=== PATIENT | male | born 1955 | race Caucasian/White ===

== ENCOUNTER → 2023-10-10 14:56 | Outpatient (REF) | payer OTHER, SELFPAY | LOC: DHVS 14:56 | PROVIDERS: ATTENDING PHYSICIAN Surgery Vascular Surgery; FAMILY PHYSICIAN Family Medicine | DX: I73.9 Peripheral vascular disease, unspecified (principal) | CPT/HCPCS: 93922; 93925 ==

== ENCOUNTER → 2023-12-11 13:28 | Outpatient (REF) | payer OTHER, SELFPAY | LOC: RAD 13:28 | PROVIDERS: ATTENDING PHYSICIAN Surgery Vascular Surgery; FAMILY PHYSICIAN Family Medicine | DX: I73.9 Peripheral vascular disease, unspecified (principal) | CPT/HCPCS: 93978 ==

== ENCOUNTER → 2024-07-15 14:18 | Outpatient (REF) | payer OTHER, SELFPAY | LOC: RAD 14:18 | PROVIDERS: ATTENDING PHYSICIAN Physician Assistant; FAMILY PHYSICIAN Family Medicine | DX: I73.9 Peripheral vascular disease, unspecified (principal) | CPT/HCPCS: 93922; 93925; 93978 ==